=== PATIENT | female | born 1985 | race Caucasian/White ===

== ENCOUNTER 2019-11-23 18:06 | Emergency (ER) | payer OTHER, BC ==
[2019-11-23] MEDS ORDERED: Cyclobenzaprine 10 MG Tab PO ONE (18:07)
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
[2019-11-23 18:59] LABS: ANION GAP 14.8 mEq/L (7-13); CHLORIDE,CL 104 mmol/L (98-107); SODIUM,NA 139 mmol/L (136-145)
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
[2019-11-23] MEDS ORDERED: Iopamidol 612 MG/ML 100 ML Bottle IVPUSH ONE (20:12)
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
[2019-11-23] MEDS ORDERED: Cyclobenzaprine 10 MG Tab ONE (21:23)
== END 2019-11-23 21:30 | disposition home or self-care (01) ==
LOC: DL.ED 18:06
DX: S00.93XA Contusion of unspecified part of head, initial encounter (principal); S40.022A Contusion of left upper arm, initial encounter; R31.21 Asymptomatic microscopic hematuria; F32.9 Major depressive disorder, single episode, unspecified; F17.210 Nicotine dependence, cigarettes, uncomplicated; Z79.899 Other long term (current) drug therapy; V49.9XXA Car occupant (driver) (passenger) injured in unspecified traffic accident, initial encounter
CPT/HCPCS: 36415; 70450; 71111; 72125; 73030; 74177; 80053; 80305; 81001; 81025; 85025; 99284; A9270; Q9967